=== PATIENT | male | born 1955 ===

== ENCOUNTER 2018-08-27 07:24 | Outpatient (CLI) | payer OTHER ==
[~2018-08-27] VITALS: Ht 177.8 cm; Wt 106.6 kg
[2018-08-27] MEDS ORDERED: ZYRTEC10 MG PO (09:22)
[2018-08-27] MEDS ORDERED: FLONASE16 GM NASAL (09:22)
== END 2018-08-27 07:45 | disposition home or self-care (01) ==
LOC: OFIC 805 07:24
DX: J32.4 Chronic pansinusitis (principal); R43.9 Unspecified disturbances of smell and taste; J31.0 Chronic rhinitis; H61.22 Impacted cerumen, left ear; H91.8X3 Other specified hearing loss, bilateral; G47.39 Other sleep apnea

== ENCOUNTER 2018-09-19 14:05 | Outpatient (CLI) | payer OTHER ==
[~2018-09-19 14:05] MED LIST: FLONASE16 GM NASAL; ZYRTEC10 MG PO
== END 2018-09-19 15:00 | disposition home or self-care (01) ==
LOC: TOM 14:05
DX: J32.4 Chronic pansinusitis (principal)

== ENCOUNTER 2018-10-22 07:23 | Outpatient (CLI) | payer OTHER ==
[~2018-10-22] VITALS: Ht 152.4 cm; Wt 106.6 kg
[2018-10-22] MEDS ORDERED: ZITHROMAX500 MG PO (09:49)
== END 2018-10-22 07:40 | disposition home or self-care (01) ==
LOC: OFIC 805 07:23
DX: J32.4 Chronic pansinusitis (principal); R43.9 Unspecified disturbances of smell and taste; J31.0 Chronic rhinitis; H61.22 Impacted cerumen, left ear; G47.33 Obstructive sleep apnea (adult) (pediatric)

== ENCOUNTER 2018-12-03 07:23 | Outpatient (CLI) | payer OTHER ==
[~2018-12-03] VITALS: Ht 152.4 cm; Wt 106.6 kg
[~2018-12-03 07:23] MED LIST changes: +ZITHROMAX500 MG PO
[2018-12-03] MEDS ORDERED: ZANTAC300 MG PO (08:42)
[2018-12-03] MEDS ORDERED: ZYRTEC10 MG PO (08:42)
== END 2018-12-03 07:40 | disposition home or self-care (01) ==
LOC: OFIC 805 07:23
DX: J32.4 Chronic pansinusitis (principal); R43.9 Unspecified disturbances of smell and taste; J31.0 Chronic rhinitis; H91.8X3 Other specified hearing loss, bilateral; G47.39 Other sleep apnea; R19.6 Halitosis; H61.23 Impacted cerumen, bilateral